=== PATIENT | male | born 1955 | race Two or more races ===

== ENCOUNTER 2023-04-27 09:53 | Inpatient (IN) | payer OTHER ==
[~2023-04-27] VITALS: Ht 165.1 cm; Wt 90.3 kg
[2023-04-27] VITALS (25 sets, daily range): BP systolic 78–175; BP diastolic 40–91; TEMP 97.5–98; O2SAT 92–100
[2023-04-27 10:28] LABS: CALCIUM, SERUM 7.7 mg/dL (8.5-10.1); CARBON DIOXIDE 26 mmol/L (21-32); CHLORIDE 95 mmol/L (98-107); CREATININE 5.5 mg/dL (0.6-1.3); GLUCOSE 188 mg/dL (74-106); POTASSIUM 5.1 mmol/L (3.5-5.1); SODIUM SERUM 134 mmol/L (136-145); UREA NITROGEN, BLOOD 65 mg/dL (7-18)
[2023-04-27 10:30] LABS: INR 1.11 (0.91-1.10); PARTIAL THROMBOPLASTIN TIME 28.8 SEC (24.3-34.3); PROTHROMBIN TIME 11.6 SECS (9.2-11.1)
[2023-04-27 10:33] LABS: ALANINE AMINOTRANSFERASE 171 U/L (12-78); ALBUMIN 2.7 g/dL (3.4-5.0); ALKALINE PHOSPHATASE 170 U/L (46-116); ASPARTATE AMINOTRANSFERASE 175 U/L (15-37); BILIRUBIN,DIRECT 0.5 mg/dL (0.0-0.2); BILIRUBIN,TOTAL 0.8 mg/dL (0.2-1.0); TOTAL PROTEIN, SERUM 6.4 g/dL (6.4-8.2)
[2023-04-27 10:38] LABS: LACTIC ACID 1.1 mmol/L (0.4-2.0)
[2023-04-27] MEDS ORDERED: ASPIRIN 325 MG TABLET ONE (10:38)
[2023-04-27 10:43] LABS: HEMOGLOBIN 8.6 g/dL (13.5-17.5)
[2023-04-27 10:47] LABS: HEMATOCRIT 26 % (39-51)
[2023-04-27 10:49] LABS: BASOPHILS % (AUTO) 0.2 % (0.0-2.0); EOSINOPHILS % (AUTO) 0.1 % (0.0-6.0); LYMPHOCYTES # (AUTO) 0.3 K/uL (0.8-4.8); LYMPHOCYTES % (AUTO) 2.3 % (20.0-44.0); MEAN CORPUSCULAR HEMOGLOBIN 30 PG (26.0-33.0); MEAN CORPUSCULAR HGB CONC 33 g/dl (31.0-36.0); MEAN CORPUSCULAR VOLUME 90 fL (80-96); MONOCYTES # (AUTO) 0.7 K/uL (0.1-1.30); MONOCYTES % (AUTO) 5.4 % (2.0-12.0); NEUTROPHILS # (AUTO) 12.4 K/uL (1.8-8.9); PLATELET COUNT (AUTO) 169 K/uL (150-450); RED BLOOD CELL COUNT(AUTO) 2.87 MIL/uL (4.5-6.0); RED CELL DISTRIBUTION WIDTH 20.1 % (11.5-15.0); WHITE BLOOD COUNT (AUTO) 13.4 K/uL (4.3-11.0)
[2023-04-27] MEDS ORDERED: AZITHROMYCIN 500 MG in IV D5W 250 ML IV ONE (11:00)
[2023-04-27] MEDS ORDERED: CEFTRIAXONE 1GM BAG (ER ONLY) 1 GM/50 ML PIGGYBACK IV ONE (11:00)
[2023-04-27] MEDS ORDERED: ASPIRIN 325 MG TABLET PO ONE (11:00)
[2023-04-27] MEDS ORDERED: CEFTRIAXONE 1GM BAG (ER ONLY) 50 ML IV ONE (11:03)
[2023-04-27] MEDS ORDERED: NORM210S MC (11:29)
[2023-04-27] MEDS ORDERED: POLY17PO4 PO (11:29)
[2023-04-27] MEDS ORDERED: ALLA266C2 TP (11:29)
[2023-04-27] MEDS ORDERED: METO50TA16 PO (11:29)
[2023-04-27] MEDS ORDERED: SENN-261 PO (11:29)
[2023-04-27] MEDS ORDERED: FERR325T23 PO (11:29)
[2023-04-27] MEDS ORDERED: ATOR80TA PO (11:29)
[2023-04-27] MEDS ORDERED: PANT40TA2 PO (11:29)
[2023-04-27] MEDS ORDERED: TAMS-12 PO (11:29)
[2023-04-27] MEDS ORDERED: CILO100T PO (11:29)
[2023-04-27] MEDS ORDERED: EPOE40002 SQ (11:29)
[2023-04-27] MEDS ORDERED: ASPI-1169 PO (11:29)
[2023-04-27] MEDS ORDERED: INSU100V SQ (11:29)
[2023-04-27] MEDS ORDERED: GABA-536 PO (11:29)
[2023-04-27] MEDS ORDERED: ACET-868 PO (11:29)
[2023-04-27] MEDS ORDERED: HONE15GE TP (11:29)
[2023-04-27] MEDS ORDERED: INSU100V7 SQ (11:29)
[2023-04-27] MEDS ORDERED: AMIO200T5 PO (11:29)
[2023-04-27] MEDS ORDERED: FINA5TAB11 PO (11:29)
[2023-04-27] MEDS ORDERED: QUET25TA PO (11:29)
[2023-04-27] MEDS ORDERED: MELA1TAB47 PO (11:29)
[2023-04-27] MEDS ORDERED: EPOETIN ALFA (10,000 UNIT) 10,000 UNIT/ML VIAL IV ONE (12:00)
[2023-04-27 12:08] LABS: ABG BASE EXCESS -1.7 mmol/L; ABG OXYGEN SATURATION 89.2 % (92.0-98.5); ABG PCO2 35.5 mmHg (35.0-45.0); ABG PH 7.419 (7.350-7.450); ABG PO2 56.7 mmHg (75.0-100.0); ABG TOTAL HEMOGLOBIN 9.1 G/dL (13.5-18.0); COHb 0.6 % (0.5-1.5); MetHb 0.1 % (0.0-1.5); O2Hb 88.6 % (94.0-97.0); SITE, ABG Right Radial; VENT MODE, BG BIPAP 15/5 R16 100%
[2023-04-27 12:16] LABS: IRON, SERUM 26 ug/dl (50-175); TOTAL IRON BINDING CAPACITY 226 ug/dl (250-450)
[2023-04-27] MEDS ORDERED: INSULIN REGULAR, HUMAN 100 UNIT/ML 3 ML VIAL SQ PRN (12:30)
[2023-04-27] MEDS ORDERED: ACETAMINOPHEN 325 MG TABLET PO PRN (12:30)
[2023-04-27] MEDS ORDERED: DEXTROSE 50%-WATER 50 ML DISP.SYRIN IV PRN (12:30)
[2023-04-27] MEDS ORDERED: POLYETHYLENE GLYCOL 3350 17 GM POWD.PACK PO PRN (12:30)
[2023-04-27] MEDS ORDERED: SENNOSIDES 8.6 MG TABLET PO PRN (12:30)
[2023-04-27] MEDS ORDERED: IPRATROPIUM NEB FS 0.5 MG/2.5 ML AMPUL.NEB NEB PRN (12:30)
[2023-04-27] MEDS ORDERED: ALBUTEROL FS 2.5 MG/0.5 ML VIAL.NEB NEB PRN (12:30)
[2023-04-27 12:31] LABS: FERRITIN 518 ng/mL (8-388)
[2023-04-27] MEDS ORDERED: EPOETIN ALFA-EPBX 10,000 UNIT/ML VIAL IV ONE (13:00)
[2023-04-27] MEDS: GABAPENTIN 400 MG CAPSULE PO SCH ×2 (13:00→16:08)
[2023-04-27] MEDS: ALBUMIN 25% 25 GM in PREMIX 1 EA IV PRN (13:37)
[2023-04-27] MEDS: PIPERACILLIN /TAZOBACTAM 2.25 G in IV D5W 50 ML IV SCH ×2 (13:39→20:47)
[2023-04-27] MEDS: NOREPINEPHRINE 8 MG in IV NS 0.9% 242 ML IV PRN (14:14)
[2023-04-27] MEDS: CILOSTAZOL 100 MG TABLET PO SCH (16:07)
[2023-04-27] MEDS: FERROUS SULFATE (325 MG) 325 MG/TAB TABLET PO SCH (16:08)
[2023-04-27] MEDS: AMIODARONE HCL 200 MG TABLET PO SCH (16:08)
[2023-04-27] MEDS: QUETIAPINE FUMARATE 25 MG TABLET PO SCH (16:08)
[2023-04-27] MEDS: BLOOD SUGAR DIAGNOSTIC 1 EACH STRIP VI SCH ×2 (17:07→21:22)
[2023-04-27] MEDS ORDERED: BLOOD SUGAR DIAGNOSTIC 1 EACH STRIP IN SCH (17:30)
[2023-04-28] VITALS (61 sets, daily range): BP systolic 90–174; BP diastolic 47–93; TEMP 97.3–98.7; O2SAT 90–100
[2023-04-28] MEDS: NOREPINEPHRINE 8 MG in IV NS 0.9% 242 ML IV PRN ×2 (02:17→12:17)
[2023-04-28 04:55] LABS: BASOPHILS # (AUTO) 0.1 K/uL (0.0-0.2); BASOPHILS % (AUTO) 0.4 % (0.0-2.0); EOSINOPHILS # (AUTO) 0.1 K/uL (0.0-0.7); EOSINOPHILS % (AUTO) 1.2 % (0.0-6.0); HEMATOCRIT 29 % (39-51); HEMOGLOBIN 9.2 g/dL (13.5-17.5); LYMPHOCYTES # (AUTO) 0.6 K/uL (0.8-4.8); LYMPHOCYTES % (AUTO) 4.7 % (20.0-44.0); MEAN CORPUSCULAR HEMOGLOBIN 30 PG (26.0-33.0); MEAN CORPUSCULAR HGB CONC 32 g/dl (31.0-36.0); MEAN CORPUSCULAR VOLUME 94 fL (80-96); MONOCYTES # (AUTO) 1.2 K/uL (0.1-1.30); MONOCYTES % (AUTO) 9.7 % (2.0-12.0); NEUTROPHILS # (AUTO) 10.1 K/uL (1.8-8.9); PLATELET COUNT (AUTO) 194 K/uL (150-450); RED BLOOD CELL COUNT(AUTO) 3.11 MIL/uL (4.5-6.0); RED CELL DISTRIBUTION WIDTH 21.2 % (11.5-15.0)
[2023-04-28 05:15] LABS: CALCIUM, SERUM 8.6 mg/dL (8.5-10.1); CREATININE 4.6 mg/dL (0.6-1.3); MAGNESIUM 2.2 mg/dL (1.8-2.4); POTASSIUM 4.4 mmol/L (3.5-5.1)
[2023-04-28] MEDS: PIPERACILLIN /TAZOBACTAM 2.25 G in IV D5W 50 ML IV SCH ×3 (06:19→21:45)
[2023-04-28] MEDS ORDERED: PANTOPRAZOLE 40 MG TABLET.DR PO SCH (07:30)
[2023-04-28] MEDS ORDERED: Z GUARD REMEDY 4 OZ OINT TP PRN (08:00)
[2023-04-28] MEDS: ASPIRIN 81 MG TAB.CHEW PO SCH (08:15)
[2023-04-28] MEDS: QUETIAPINE FUMARATE 25 MG TABLET PO SCH ×2 (08:15→16:49)
[2023-04-28] MEDS: GABAPENTIN 400 MG CAPSULE PO SCH ×3 (08:15→16:49)
[2023-04-28] MEDS: TAMSULOSIN 0.4 MG CAP.SR.24H PO SCH (08:15)
[2023-04-28] MEDS: FINASTERIDE (5 MG) 5 MG TABLET PO SCH (08:15)
[2023-04-28] MEDS: AMIODARONE HCL 200 MG TABLET PO SCH ×2 (08:16→16:50)
[2023-04-28] MEDS: FERROUS SULFATE (325 MG) 325 MG/TAB TABLET PO SCH (08:16)
[2023-04-28] MEDS: BLOOD SUGAR DIAGNOSTIC 1 EACH STRIP VI SCH ×4 (08:16→22:26)
[2023-04-28 08:33] LABS: OCCULT BLOOD STOOL NEGATIVE (NEGATIVE)
[2023-04-28] MEDS: HEPARIN SODIUM, PORCINE 5000 UNITS/1 ML VIAL SQ SCH ×2 (09:20→21:30)
[2023-04-28] MEDS: NEOMY SULF/BACITRAC ZN/POLY 15 GM TUBE TP SCH (09:21)
[2023-04-28] MEDS: CILOSTAZOL 100 MG TABLET PO SCH ×2 (09:21→16:51)
[2023-04-28] MEDS: Z GUARD REMEDY 4 OZ OINT TP SCH (09:21)
[2023-04-28] MEDS: SOD FERRIC GLUC 125 MG in IV NS 0.9% 100 ML IV SCH (15:05)
[2023-04-28] MEDS: *INSULIN REGULAR(HUMULIN R)HUM 100 UNIT/ML VIAL SQ PRN (22:27)
[2023-04-29] VITALS (22 sets, daily range): BP systolic 78–130; BP diastolic 29–70; TEMP 92.8–98.2; O2SAT 88–100
[2023-04-29 03:12] LABS: HEPATITIS B SURFACE AB Non Reactive (.)
[2023-04-29 03:44] LABS: BASOPHILS % (AUTO) 0.4 % (0.0-2.0); EOSINOPHILS # (AUTO) 0.1 K/uL (0.0-0.7); EOSINOPHILS % (AUTO) 1.1 % (0.0-6.0); HEMATOCRIT 24 % (39-51); HEMOGLOBIN 7.7 g/dL (13.5-17.5); LYMPHOCYTES # (AUTO) 0.4 K/uL (0.8-4.8); LYMPHOCYTES % (AUTO) 4.7 % (20.0-44.0); MEAN CORPUSCULAR HEMOGLOBIN 30 PG (26.0-33.0); MEAN CORPUSCULAR HGB CONC 32 g/dl (31.0-36.0); MEAN CORPUSCULAR VOLUME 93 fL (80-96); MONOCYTES # (AUTO) 0.8 K/uL (0.1-1.30); MONOCYTES % (AUTO) 10.5 % (2.0-12.0); NEUTROPHILS # (AUTO) 6.3 K/uL (1.8-8.9); NEUTROPHILS % (AUTO) 83.3 % (43.0-81.0); PLATELET COUNT (AUTO) 158 K/uL (150-450); RED BLOOD CELL COUNT(AUTO) 2.58 MIL/uL (4.5-6.0); RED CELL DISTRIBUTION WIDTH 20.4 % (11.5-15.0); WHITE BLOOD COUNT (AUTO) 7.5 K/uL (4.3-11.0)
[2023-04-29 04:04] LABS: CALCIUM, SERUM 8.5 mg/dL (8.5-10.1); CREATININE 3.8 mg/dL (0.6-1.3); POTASSIUM 4.3 mmol/L (3.5-5.1)
[2023-04-29] MEDS: PIPERACILLIN /TAZOBACTAM 2.25 G in IV D5W 50 ML IV SCH ×3 (05:27→21:27)
[2023-04-29] MEDS: BLOOD SUGAR DIAGNOSTIC 1 EACH STRIP VI SCH ×4 (07:50→22:46)
[2023-04-29] MEDS: GABAPENTIN 400 MG CAPSULE PO SCH ×3 (08:10→17:48)
[2023-04-29] MEDS: ASPIRIN 81 MG TAB.CHEW PO SCH (08:10)
[2023-04-29] MEDS: CILOSTAZOL 100 MG TABLET PO SCH ×2 (08:10→17:51)
[2023-04-29] MEDS: TAMSULOSIN 0.4 MG CAP.SR.24H PO SCH (08:10)
[2023-04-29] MEDS: QUETIAPINE FUMARATE 25 MG TABLET PO SCH ×2 (08:10→17:48)
[2023-04-29] MEDS: FINASTERIDE (5 MG) 5 MG TABLET PO SCH (08:10)
[2023-04-29] MEDS: PANTOPRAZOLE 40 MG/PACK PACK PO SCH (08:12)
[2023-04-29 08:15] LABS: OCCULT BLOOD STOOL NEGATIVE (NEGATIVE)
[2023-04-29] MEDS: HEPARIN SODIUM, PORCINE 5000 UNITS/1 ML VIAL SQ SCH ×2 (08:15→21:26)
[2023-04-29] MEDS: Z GUARD REMEDY 4 OZ OINT TP SCH (08:29)
[2023-04-29] MEDS: NEOMY SULF/BACITRAC ZN/POLY 15 GM TUBE TP SCH ×2 (08:29→09:00)
[2023-04-29] MEDS: AMIODARONE HCL 200 MG TABLET PO SCH ×2 (08:35→17:48)
[2023-04-29] MEDS: PROSOURCE / PROSTAT (PYXIS) 30 ML UDC PO SCH ×3 (09:00→17:48)
[2023-04-29] MEDS: *INSULIN REGULAR(HUMULIN R)HUM 100 UNIT/ML VIAL SQ PRN ×2 (11:59→22:48)
[2023-04-29] MEDS ORDERED: NOREPINEPHRINE 32 MG in IV NS 0.9% 218 ML IV PRN (13:30)
[2023-04-29] MEDS ORDERED: CALCIUM CHLORIDE 1,000 MG/10 ML DISP.SYRIN IV ONE (13:37)
[2023-04-29] MEDS ORDERED: SODIUM BICARBONATE SYR 50 MEQ/50 ML DISP.SYRIN IV ONE (13:38)
[2023-04-29] MEDS ORDERED: EPINEPHRINE (1:10,000) SYRINGE 1 MG/10 ML DISP.SYRIN IVP ONE (13:38)
[2023-04-29 14:12] LABS: BASOPHILS % (AUTO) 0.3 % (0.0-2.0); EOSINOPHILS # (AUTO) 0.1 K/uL (0.0-0.7); EOSINOPHILS % (AUTO) 1.1 % (0.0-6.0); HEMATOCRIT 24 % (39-51); HEMOGLOBIN 7.7 g/dL (13.5-17.5); LYMPHOCYTES # (AUTO) 0.2 K/uL (0.8-4.8); MEAN CORPUSCULAR HEMOGLOBIN 31 PG (26.0-33.0); MEAN CORPUSCULAR HGB CONC 32 g/dl (31.0-36.0); MEAN CORPUSCULAR VOLUME 95 fL (80-96); MONOCYTES # (AUTO) 0.5 K/uL (0.1-1.30); MONOCYTES % (AUTO) 6.8 % (2.0-12.0); NEUTROPHILS # (AUTO) 6.2 K/uL (1.8-8.9); NEUTROPHILS % (AUTO) 88.8 % (43.0-81.0); PLATELET COUNT (AUTO) 138 K/uL (150-450); RED BLOOD CELL COUNT(AUTO) 2.51 MIL/uL (4.5-6.0); RED CELL DISTRIBUTION WIDTH 21.2 % (11.5-15.0)
[2023-04-29 14:24] LABS: CALCIUM, SERUM 8.7 mg/dL (8.5-10.1); CARBON DIOXIDE 23 mmol/L (21-32); CHLORIDE 101 mmol/L (98-107); CREATININE 4.2 mg/dL (0.6-1.3); GLUCOSE 194 mg/dL (74-106); POTASSIUM 3.8 mmol/L (3.5-5.1); SODIUM SERUM 138 mmol/L (136-145); UREA NITROGEN, BLOOD 41 mg/dL (7-18)
[2023-04-29 14:25] LABS: INR 1.25 (0.91-1.10)
[2023-04-29] MEDS: IV NS 0.9% 1,000 ML IV PRN (14:27)
[2023-04-29] MEDS: SOD FERRIC GLUC 125 MG in IV NS 0.9% 100 ML IV SCH (14:36)
[2023-04-29 14:37] LABS: ALANINE AMINOTRANSFERASE 143 U/L (12-78); ALBUMIN 2.2 g/dL (3.4-5.0); ALKALINE PHOSPHATASE 126 U/L (46-116); ASPARTATE AMINOTRANSFERASE 149 U/L (15-37); BILIRUBIN,TOTAL 0.7 mg/dL (0.2-1.0); PHOSPHORUS 5.1 mg/dL (2.5-4.9); TOTAL PROTEIN, SERUM 5.3 g/dL (6.4-8.2)
[2023-04-29] MEDS: NOREPINEPHRINE 8 MG in IV NS 0.9% 242 ML IV PRN (14:38)
[2023-04-29 14:51] LABS: LACTIC ACID 2.6 mmol/L (0.4-2.0)
[2023-04-29 14:52] LABS: CREATINE KINASE, TOTAL 1135 U/L (39-308)
[2023-04-29] MEDS ORDERED: VANCOMYCIN 1 GM in IV D5W 250ml IV ONE (15:00)
[2023-04-29] MEDS ORDERED: PROPOFOL 100 ML IV PRN (15:00)
[2023-04-29 15:19] LABS: ANISOCYTOSIS 1+; LYMPHOCYTES % (MANUAL) 3 % (16-48); MONOCYTES % (MANUAL) 8 % (0-11.0); MYELOCYTES % 1 % (0-0); NEUTROPHILS % (MANUAL) 88 (42-76); PLATELET ESTIMATE DECREASED
[2023-04-29 15:36] LABS: ABG BASE EXCESS -15.3 mmol/L; ABG OXYGEN SATURATION 62.9 % (92.0-98.5); ABG PCO2 23.7 mmHg (35.0-45.0); ABG PH 7.262 (7.350-7.450); ABG PO2 35.9 mmHg (75.0-100.0); ABG TOTAL HEMOGLOBIN 3.5 G/dL (13.5-18.0); AaDO2 653.4 mmHg; MetHb 0.3 % (0.0-1.5); O2Hb 62.7 % (94.0-97.0); PEEP,BG 5 cm H2O; SITE, ABG Right Radial; VENT MODE, BG AC20 VT500 100% +5; VT, ABG 500 mL
[2023-04-29 15:38] LABS: BILIRUBIN,DIRECT 0.4 mg/dL (0.0-0.2)
[2023-04-29 16:05] LABS: LACTIC ACID REFLEX 2.9 mmol/L (0.4-1.9)
[2023-04-29 17:25] LABS: BASOPHILS % (AUTO) 0.2 % (0.0-2.0); EOSINOPHILS % (AUTO) 0.2 % (0.0-6.0); HEMATOCRIT 27 % (39-51); HEMOGLOBIN 8.5 g/dL (13.5-17.5); LYMPHOCYTES # (AUTO) 0.2 K/uL (0.8-4.8); LYMPHOCYTES % (AUTO) 2.4 % (20.0-44.0); MEAN CORPUSCULAR HEMOGLOBIN 30 PG (26.0-33.0); MEAN CORPUSCULAR HGB CONC 31 g/dl (31.0-36.0); MEAN CORPUSCULAR VOLUME 96 fL (80-96); MONOCYTES # (AUTO) 0.9 K/uL (0.1-1.30); MONOCYTES % (AUTO) 9.1 % (2.0-12.0); NEUTROPHILS # (AUTO) 8.7 K/uL (1.8-8.9); NEUTROPHILS % (AUTO) 88.1 % (43.0-81.0); PLATELET COUNT (AUTO) 174 K/uL (150-450); RED BLOOD CELL COUNT(AUTO) 2.84 MIL/uL (4.5-6.0); RED CELL DISTRIBUTION WIDTH 21.2 % (11.5-15.0); WHITE BLOOD COUNT (AUTO) 9.9 K/uL (4.3-11.0)
[2023-04-29 17:38] LABS: CALCIUM, SERUM 8.6 mg/dL (8.5-10.1); CREATININE 4.3 mg/dL (0.6-1.3); POTASSIUM 4.4 mmol/L (3.5-5.1)
[2023-04-29 17:44] LABS: ALBUMIN 2.5 g/dL (3.4-5.0); BILIRUBIN,TOTAL 0.7 mg/dL (0.2-1.0); MAGNESIUM 2.1 mg/dL (1.8-2.4); TOTAL PROTEIN, SERUM 5.9 g/dL (6.4-8.2)
[2023-04-29] MEDS: PROPOFOL 100 ML IV PRN ×2 (18:51→20:58)
[2023-04-29 20:32] LABS: CALCIUM, SERUM 8.5 mg/dL (8.5-10.1); CREATININE 4.4 mg/dL (0.6-1.3); MAGNESIUM 2.1 mg/dL (1.8-2.4); POTASSIUM 4.3 mmol/L (3.5-5.1)
[2023-04-29 22:40] LABS: ABG BASE EXCESS -2.8 mmol/L; ABG OXYGEN SATURATION 75.8 % (92.0-98.5); ABG PCO2 40.2 mmHg (35.0-45.0); ABG PH 7.363 (7.350-7.450); ABG PO2 43.6 mmHg (75.0-100.0); ABG TOTAL HEMOGLOBIN 8.9 G/dL (13.5-18.0); COHb 0.4 % (0.5-1.5); MetHb 0.4 % (0.0-1.5); O2Hb 75.2 % (94.0-97.0); SITE, ABG Other; VENT MODE, BG AC 20 500 100% +5
[2023-04-29 23:02] LABS: CREATINE KINASE, TOTAL 919 U/L (39-308)
[2023-04-30] VITALS (73 sets, daily range): BP systolic 80–136; BP diastolic 39–86; TEMP 92.3–97.7; O2SAT 92–100
[2023-04-30 01:03] LABS: CREATINE KINASE, TOTAL 757 U/L (39-308)
[2023-04-30] MEDS: PROPOFOL 100 ML IV PRN ×7 (01:11→22:13)
[2023-04-30 04:15] LABS: BASOPHILS % (AUTO) 0.4 % (0.0-2.0); EOSINOPHILS % (AUTO) 0.4 % (0.0-6.0); HEMATOCRIT 23 % (39-51); HEMOGLOBIN 7.7 g/dL (13.5-17.5); LYMPHOCYTES # (AUTO) 0.3 K/uL (0.8-4.8); LYMPHOCYTES % (AUTO) 4.3 % (20.0-44.0); MEAN CORPUSCULAR HEMOGLOBIN 31 PG (26.0-33.0); MEAN CORPUSCULAR HGB CONC 33 g/dl (31.0-36.0); MEAN CORPUSCULAR VOLUME 93 fL (80-96); MONOCYTES # (AUTO) 0.6 K/uL (0.1-1.30); MONOCYTES % (AUTO) 7.6 % (2.0-12.0); NEUTROPHILS # (AUTO) 6.9 K/uL (1.8-8.9); NEUTROPHILS % (AUTO) 87.3 % (43.0-81.0); PLATELET COUNT (AUTO) 145 K/uL (150-450); RED CELL DISTRIBUTION WIDTH 20.5 % (11.5-15.0); WHITE BLOOD COUNT (AUTO) 7.9 K/uL (4.3-11.0)
[2023-04-30 04:51] LABS: INR 1.19 (0.91-1.10); PARTIAL THROMBOPLASTIN TIME 36.8 SEC (24.3-34.3); PROTHROMBIN TIME 12.4 SECS (9.2-11.1)
[2023-04-30 04:53] LABS: LACTIC ACID 1.9 mmol/L (0.4-2.0)
[2023-04-30] MEDS: PIPERACILLIN /TAZOBACTAM 2.25 G in IV D5W 50 ML IV SCH ×3 (04:54→21:43)
[2023-04-30 05:29] LABS: ABG BASE EXCESS -1.7 mmol/L; ABG OXYGEN SATURATION 99.2 % (92.0-98.5); ABG PCO2 34.9 mmHg (35.0-45.0); ABG PH 7.424 (7.350-7.450); ABG PO2 227.6 mmHg (75.0-100.0); ABG TOTAL HEMOGLOBIN 9.1 G/dL (13.5-18.0); AaDO2 450.5 mmHg; COHb 0.4 % (0.5-1.5); MetHb 0.2 % (0.0-1.5); O2Hb 98.6 % (94.0-97.0); SITE, ABG Right Brachial; VENT MODE, BG AC 20 500 100% +5
[2023-04-30 05:54] LABS: ALBUMIN 2.2 g/dL (3.4-5.0); BILIRUBIN,TOTAL 0.7 mg/dL (0.2-1.0); CALCIUM, SERUM 8.1 mg/dL (8.5-10.1); CREATININE 4.5 mg/dL (0.6-1.3); MAGNESIUM 2.1 mg/dL (1.8-2.4); PHOSPHORUS 4.9 mg/dL (2.5-4.9); TOTAL PROTEIN, SERUM 5.2 g/dL (6.4-8.2)
[2023-04-30] MEDS: BLOOD SUGAR DIAGNOSTIC 1 EACH STRIP VI SCH (08:15)
[2023-04-30] MEDS: *INSULIN REGULAR(HUMULIN R)HUM 100 UNIT/ML VIAL SQ PRN ×4 (08:21→18:20)
[2023-04-30] MEDS: HEPARIN SODIUM, PORCINE 5000 UNITS/1 ML VIAL SQ SCH ×2 (09:00→21:50)
[2023-04-30] MEDS: TAMSULOSIN 0.4 MG CAP.SR.24H PO SCH (09:05)
[2023-04-30] MEDS: ASPIRIN 81 MG TAB.CHEW PO SCH (09:05)
[2023-04-30] MEDS: GABAPENTIN 400 MG CAPSULE PO SCH ×3 (09:06→17:58)
[2023-04-30] MEDS: FINASTERIDE (5 MG) 5 MG TABLET PO SCH (09:06)
[2023-04-30] MEDS: QUETIAPINE FUMARATE 25 MG TABLET PO SCH ×2 (09:06→17:58)
[2023-04-30] MEDS: NEOMY SULF/BACITRAC ZN/POLY 15 GM TUBE TP SCH ×2 (09:07→09:08)
[2023-04-30] MEDS: Z GUARD REMEDY 4 OZ OINT TP SCH (09:08)
[2023-04-30] MEDS: HYDROCORTISONE SOD SUCCINATE 100 MG/2 ML VIAL IV SCH ×3 (09:12→21:43)
[2023-04-30] MEDS: PANTOPRAZOLE 40 MG/PACK PACK PO SCH (09:12)
[2023-04-30] MEDS: AMIODARONE HCL 200 MG TABLET PO SCH ×2 (09:13→17:00)
[2023-04-30] MEDS: CILOSTAZOL 100 MG TABLET PO SCH ×2 (09:13→18:00)
[2023-04-30] MEDS: PROSOURCE / PROSTAT (PYXIS) 30 ML UDC PO SCH ×3 (09:15→17:59)
[2023-04-30 11:07] LABS: CALCIUM, IONIZED 4.8 mg/dL (4.5-5.6)
[2023-04-30] MEDS: IV NS 0.9% 1,000 ML IV PRN (11:53)
[2023-04-30] MEDS ORDERED: BLOOD SUGAR DIAGNOSTIC 1 EACH STRIP VI SCH ×2 (12:00→19:00)
[2023-04-30] MEDS: SOD FERRIC GLUC 125 MG in IV NS 0.9% 100 ML IV SCH (16:00)
[2023-04-30] MEDS ORDERED: NEPRO 1,000 ML BOTTLE GT PRN (16:30)
[2023-04-30] MEDS: VANCOMYCIN POST DIALYSIS 500MG IV PRN ×4 (16:46→16:48)
[2023-04-30] MEDS: NOREPINEPHRINE 8 MG in IV NS 0.9% 242 ML IV PRN (19:10)
[2023-04-30 19:50] LABS: CALCIUM, SERUM 8.3 mg/dL (8.5-10.1); CREATININE 3.5 mg/dL (0.6-1.3); POTASSIUM 4.2 mmol/L (3.5-5.1)
[2023-04-30 20:06] LABS: LACTIC ACID 1.4 mmol/L (0.4-2.0)
[2023-04-30 22:27] LABS: CREATINE KINASE, TOTAL 295 U/L (39-308)
[2023-05-01] VITALS (46 sets, daily range): BP systolic 89–125; BP diastolic 52–82; TEMP 97.8–98.8; O2SAT 90–100
[2023-05-01] MEDS: BLOOD SUGAR DIAGNOSTIC 1 EACH STRIP IN SCH ×4 (00:06→17:40)
[2023-05-01] MEDS: INSULIN REGULAR, HUMAN 100 UNIT/ML 3 ML VIAL SQ PRN ×4 (00:08→18:26)
[2023-05-01] MEDS: PROPOFOL 100 ML IV PRN ×2 (01:52→06:36)
[2023-05-01] MEDS: HYDROCORTISONE SOD SUCCINATE 100 MG/2 ML VIAL IV SCH ×3 (05:27→20:48)
[2023-05-01] MEDS: PIPERACILLIN /TAZOBACTAM 2.25 G in IV D5W 50 ML IV SCH ×3 (05:27→21:00)
[2023-05-01 08:32] LABS: BASOPHILS # (AUTO) 0.1 K/uL (0.0-0.2); BASOPHILS % (AUTO) 0.3 % (0.0-2.0); HEMATOCRIT 36 % (39-51); HEMOGLOBIN 10.8 g/dL (13.5-17.5); LYMPHOCYTES # (AUTO) 0.5 K/uL (0.8-4.8); LYMPHOCYTES % (AUTO) 2.5 % (20.0-44.0); MEAN CORPUSCULAR HEMOGLOBIN 29 PG (26.0-33.0); MEAN CORPUSCULAR HGB CONC 30 g/dl (31.0-36.0); MEAN CORPUSCULAR VOLUME 95 fL (80-96); MONOCYTES # (AUTO) 1.3 K/uL (0.1-1.30); MONOCYTES % (AUTO) 6.8 % (2.0-12.0); NEUTROPHILS # (AUTO) 16.8 K/uL (1.8-8.9); NEUTROPHILS % (AUTO) 90.4 % (43.0-81.0); PLATELET COUNT (AUTO) 232 K/uL (150-450); RED BLOOD CELL COUNT(AUTO) 3.73 MIL/uL (4.5-6.0); RED CELL DISTRIBUTION WIDTH 21.9 % (11.5-15.0); WHITE BLOOD COUNT (AUTO) 18.6 K/uL (4.3-11.0)
[2023-05-01 08:41] LABS: CALCIUM, SERUM 8.3 mg/dL (8.5-10.1); POTASSIUM 4.4 mmol/L (3.5-5.1)
[2023-05-01 09:09] LABS: ABG BASE EXCESS -1.5 mmol/L; ABG OXYGEN SATURATION 95.2 % (92.0-98.5); ABG PCO2 33.4 mmHg (35.0-45.0); ABG PH 7.438 (7.350-7.450); ABG PO2 78.6 mmHg (75.0-100.0); ABG TOTAL HEMOGLOBIN 11.6 G/dL (13.5-18.0); AaDO2 204.3 mmHg; COHb 0.5 % (0.5-1.5); MetHb 0.4 % (0.0-1.5); O2Hb 94.3 % (94.0-97.0); SITE, ABG Right Radial; VENT MODE, BG AC 20-500-45 +5
[2023-05-01] MEDS: PANTOPRAZOLE 40 MG/PACK PACK PO SCH (09:31)
[2023-05-01] MEDS: TAMSULOSIN 0.4 MG CAP.SR.24H PO SCH (09:32)
[2023-05-01] MEDS: QUETIAPINE FUMARATE 25 MG TABLET PO SCH ×2 (09:32→17:40)
[2023-05-01] MEDS: ASPIRIN 81 MG TAB.CHEW PO SCH (09:32)
[2023-05-01] MEDS: CILOSTAZOL 100 MG TABLET PO SCH ×2 (09:32→17:40)
[2023-05-01] MEDS: FINASTERIDE (5 MG) 5 MG TABLET PO SCH (09:32)
[2023-05-01] MEDS: GABAPENTIN 400 MG CAPSULE PO SCH ×3 (09:32→17:39)
[2023-05-01] MEDS: AMIODARONE HCL 200 MG TABLET PO SCH ×2 (09:33→17:39)
[2023-05-01] MEDS: Z GUARD REMEDY 4 OZ OINT TP SCH (09:37)
[2023-05-01] MEDS: NEOMY SULF/BACITRAC ZN/POLY 15 GM TUBE TP SCH ×2 (09:37)
[2023-05-01] MEDS: PROSOURCE / PROSTAT (PYXIS) 30 ML UDC PO SCH ×3 (09:39→17:38)
[2023-05-01] MEDS: HEPARIN SODIUM, PORCINE 5000 UNITS/1 ML VIAL SQ SCH ×2 (09:41→20:55)
[2023-05-01] MEDS: IV NS 0.9% 1,000 ML IV PRN (10:47)
[2023-05-01] MEDS: SOD FERRIC GLUC 125 MG in IV NS 0.9% 100 ML IV SCH (17:38)
[2023-05-01] MEDS: NEPRO 1,000 ML BOTTLE GT PRN (17:40)
[2023-05-02] VITALS (30 sets, daily range): BP systolic 87–129; BP diastolic 55–80; TEMP 96.4–98.8; O2SAT 94–100
[2023-05-02] MEDS: NOREPINEPHRINE 8 MG in IV NS 0.9% 242 ML IV PRN ×2
[2023-05-02] MEDS: BLOOD SUGAR DIAGNOSTIC 1 EACH STRIP IN SCH ×4 (00:41→18:06)
[2023-05-02] MEDS: GABAPENTIN 400 MG CAPSULE PO SCH ×3 (00:41→16:09)
[2023-05-02] MEDS: INSULIN REGULAR, HUMAN 100 UNIT/ML 3 ML VIAL SQ PRN ×4 (00:47→18:08)
[2023-05-02] MEDS: PIPERACILLIN /TAZOBACTAM 2.25 G in IV D5W 50 ML IV SCH ×3 (04:00→21:12)
[2023-05-02] MEDS: HYDROCORTISONE SOD SUCCINATE 100 MG/2 ML VIAL IV SCH ×3 (05:01→21:12)
[2023-05-02 05:10] LABS: BASOPHILS % (AUTO) 0.1 % (0.0-2.0); EOSINOPHILS % (AUTO) 0.1 % (0.0-6.0); HEMATOCRIT 31 % (39-51); HEMOGLOBIN 9.6 g/dL (13.5-17.5); LYMPHOCYTES # (AUTO) 0.4 K/uL (0.8-4.8); LYMPHOCYTES % (AUTO) 3.7 % (20.0-44.0); MEAN CORPUSCULAR HEMOGLOBIN 29 PG (26.0-33.0); MEAN CORPUSCULAR HGB CONC 31 g/dl (31.0-36.0); MEAN CORPUSCULAR VOLUME 93 fL (80-96); MONOCYTES # (AUTO) 0.6 K/uL (0.1-1.30); MONOCYTES % (AUTO) 5.2 % (2.0-12.0); NEUTROPHILS # (AUTO) 10.6 K/uL (1.8-8.9); NEUTROPHILS % (AUTO) 90.9 % (43.0-81.0); PLATELET COUNT (AUTO) 205 K/uL (150-450); RED BLOOD CELL COUNT(AUTO) 3.28 MIL/uL (4.5-6.0); WHITE BLOOD COUNT (AUTO) 11.7 K/uL (4.3-11.0)
[2023-05-02 05:26] LABS: CALCIUM, SERUM 8.2 mg/dL (8.5-10.1); CREATININE 4.7 mg/dL (0.6-1.3); POTASSIUM 4.5 mmol/L (3.5-5.1)
[2023-05-02] MEDS: PROSOURCE / PROSTAT (PYXIS) 30 ML UDC PO SCH ×3 (08:00→16:09)
[2023-05-02 10:04] LABS: ABG BASE EXCESS -4.1 mmol/L; ABG OXYGEN SATURATION 93.4 % (92.0-98.5); ABG PCO2 31.4 mmHg (35.0-45.0); ABG PH 7.415 (7.350-7.450); ABG PO2 68.6 mmHg (75.0-100.0); ABG TOTAL HEMOGLOBIN 10.3 G/dL (13.5-18.0); AaDO2 216.5 mmHg; COHb 0.4 % (0.5-1.5); MetHb 0.2 % (0.0-1.5); O2Hb 92.8 % (94.0-97.0); PEEP,BG 5 cm H2O; SITE, ABG Right Radial; VT, ABG 500 mL
[2023-05-02] MEDS: IV NS 0.9% 1,000 ML IV PRN (10:36)
[2023-05-02 11:27] LABS: CREATININE KINASE (CK),MB 24.7 ng/mL (0.0-10.4)
[2023-05-02] MEDS: NEOMY SULF/BACITRAC ZN/POLY 15 GM TUBE TP SCH ×2 (12:30→12:31)
[2023-05-02] MEDS: Z GUARD REMEDY 4 OZ OINT TP SCH (12:31)
[2023-05-02] MEDS: PANTOPRAZOLE 40 MG/PACK PACK PO SCH (15:02)
[2023-05-02] MEDS: ASPIRIN 81 MG TAB.CHEW PO SCH (15:02)
[2023-05-02] MEDS: QUETIAPINE FUMARATE 25 MG TABLET PO SCH ×2 (15:02→16:09)
[2023-05-02] MEDS: AMIODARONE HCL 200 MG TABLET PO SCH ×2 (15:03→16:09)
[2023-05-02] MEDS: CILOSTAZOL 100 MG TABLET PO SCH ×2 (15:03→16:09)
[2023-05-02] MEDS: FINASTERIDE (5 MG) 5 MG TABLET PO SCH (15:04)
[2023-05-02] MEDS: TAMSULOSIN 0.4 MG CAP.SR.24H PO SCH (15:04)
[2023-05-02] MEDS: HEPARIN SODIUM, PORCINE 5000 UNITS/1 ML VIAL SQ SCH ×2 (15:05→21:13)
[2023-05-02] MEDS: VANCOMYCIN POST DIALYSIS 500MG IV PRN ×2 (16:10)
[2023-05-02] MEDS: SOD FERRIC GLUC 125 MG in IV NS 0.9% 100 ML IV SCH (17:54)
[2023-05-03] VITALS (23 sets, daily range): BP systolic 94–139; BP diastolic 68–80; TEMP 96.9–98.8; O2SAT 93–98
[2023-05-03] MEDS: GABAPENTIN 400 MG CAPSULE PO SCH ×3 (00:22→20:33)
[2023-05-03] MEDS: BLOOD SUGAR DIAGNOSTIC 1 EACH STRIP IN SCH ×4 (00:23→19:06)
[2023-05-03] MEDS: HYDROCORTISONE SOD SUCCINATE 100 MG/2 ML VIAL IV SCH ×3 (05:01→20:35)
[2023-05-03] MEDS: PIPERACILLIN /TAZOBACTAM 2.25 G in IV D5W 50 ML IV SCH ×3 (05:01→21:11)
[2023-05-03 05:26] LABS: BASOPHILS % (AUTO) 0.1 % (0.0-2.0); HEMATOCRIT 29 % (39-51); HEMOGLOBIN 9.1 g/dL (13.5-17.5); LYMPHOCYTES # (AUTO) 0.4 K/uL (0.8-4.8); LYMPHOCYTES % (AUTO) 3.2 % (20.0-44.0); MEAN CORPUSCULAR HEMOGLOBIN 30 PG (26.0-33.0); MEAN CORPUSCULAR HGB CONC 32 g/dl (31.0-36.0); MEAN CORPUSCULAR VOLUME 93 fL (80-96); MONOCYTES # (AUTO) 0.7 K/uL (0.1-1.30); MONOCYTES % (AUTO) 5.2 % (2.0-12.0); NEUTROPHILS # (AUTO) 12.5 K/uL (1.8-8.9); NEUTROPHILS % (AUTO) 91.5 % (43.0-81.0); PLATELET COUNT (AUTO) 153 K/uL (150-450); RED BLOOD CELL COUNT(AUTO) 3.08 MIL/uL (4.5-6.0); RED CELL DISTRIBUTION WIDTH 21.4 % (11.5-15.0); WHITE BLOOD COUNT (AUTO) 13.6 K/uL (4.3-11.0)
[2023-05-03 05:28] LABS: ABG OXYGEN SATURATION 89.2 % (92.0-98.5); ABG PCO2 34.8 mmHg (35.0-45.0); ABG PH 7.403 (7.350-7.450); ABG PO2 57.9 mmHg (75.0-100.0); ABG TOTAL HEMOGLOBIN 10.4 G/dL (13.5-18.0); AaDO2 259.5 mmHg; COHb 0.7 % (0.5-1.5); MetHb 0.2 % (0.0-1.5); O2Hb 88.4 % (94.0-97.0); SITE, ABG Right Brachial; VENT MODE, BG SIMV4 VT500 50% +5 PS10
[2023-05-03 05:32] LABS: CREATININE 3.7 mg/dL (0.6-1.3); POTASSIUM 4.3 mmol/L (3.5-5.1)
[2023-05-03] MEDS: NEPRO 1,000 ML BOTTLE GT PRN (06:07)
[2023-05-03] MEDS: PROSOURCE / PROSTAT (PYXIS) 30 ML UDC PO SCH ×3 (10:59→20:34)
[2023-05-03] MEDS: IV NS 0.9% 1,000 ML IV PRN (11:00)
[2023-05-03] MEDS: QUETIAPINE FUMARATE 25 MG TABLET PO SCH ×2 (11:00→20:34)
[2023-05-03] MEDS: FINASTERIDE (5 MG) 5 MG TABLET PO SCH (11:01)
[2023-05-03] MEDS: ASPIRIN 81 MG TAB.CHEW PO SCH (11:01)
[2023-05-03] MEDS: PANTOPRAZOLE 40 MG/PACK PACK PO SCH (11:01)
[2023-05-03] MEDS: CILOSTAZOL 100 MG TABLET PO SCH ×2 (11:01→20:31)
[2023-05-03] MEDS: TAMSULOSIN 0.4 MG CAP.SR.24H PO SCH (11:01)
[2023-05-03] MEDS: AMIODARONE HCL 200 MG TABLET PO SCH ×2 (11:01→20:33)
[2023-05-03] MEDS: Z GUARD REMEDY 4 OZ OINT TP SCH (11:02)
[2023-05-03] MEDS: NEOMY SULF/BACITRAC ZN/POLY 15 GM TUBE TP SCH ×2 (11:02)
[2023-05-03] MEDS: HEPARIN SODIUM, PORCINE 5000 UNITS/1 ML VIAL SQ SCH ×2 (11:03→20:35)
[2023-05-03] MEDS: VANCOMYCIN POST DIALYSIS 500MG IV PRN ×2 (20:35)
[2023-05-04] VITALS (33 sets, daily range): BP systolic 99–161; BP diastolic 58–91; TEMP 97.9–98; O2SAT 91–100
[2023-05-04] MEDS: GABAPENTIN 400 MG CAPSULE PO SCH ×3 (00:43→16:28)
[2023-05-04] MEDS: BLOOD SUGAR DIAGNOSTIC 1 EACH STRIP IN SCH ×4 (00:43→18:03)
[2023-05-04] MEDS: INSULIN REGULAR, HUMAN 100 UNIT/ML 3 ML VIAL SQ PRN ×2 (00:44→06:11)
[2023-05-04 04:42] LABS: BASOPHILS % (AUTO) 0.1 % (0.0-2.0); HEMATOCRIT 30 % (39-51); HEMOGLOBIN 9.4 g/dL (13.5-17.5); LYMPHOCYTES # (AUTO) 0.4 K/uL (0.8-4.8); LYMPHOCYTES % (AUTO) 2.9 % (20.0-44.0); MEAN CORPUSCULAR HEMOGLOBIN 29 PG (26.0-33.0); MEAN CORPUSCULAR HGB CONC 31 g/dl (31.0-36.0); MEAN CORPUSCULAR VOLUME 94 fL (80-96); MONOCYTES # (AUTO) 0.7 K/uL (0.1-1.30); MONOCYTES % (AUTO) 5.5 % (2.0-12.0); NEUTROPHILS # (AUTO) 12.3 K/uL (1.8-8.9); NEUTROPHILS % (AUTO) 91.5 % (43.0-81.0); PLATELET COUNT (AUTO) 153 K/uL (150-450); RED BLOOD CELL COUNT(AUTO) 3.21 MIL/uL (4.5-6.0); RED CELL DISTRIBUTION WIDTH 20.9 % (11.5-15.0); WHITE BLOOD COUNT (AUTO) 13.5 K/uL (4.3-11.0)
[2023-05-04 04:55] LABS: CALCIUM, SERUM 9.1 mg/dL (8.5-10.1); CREATININE 3.4 mg/dL (0.6-1.3); POTASSIUM 4.1 mmol/L (3.5-5.1)
[2023-05-04] MEDS: PIPERACILLIN /TAZOBACTAM 2.25 G in IV D5W 50 ML IV SCH ×3 (05:24→21:43)
[2023-05-04] MEDS: HYDROCORTISONE SOD SUCCINATE 100 MG/2 ML VIAL IV SCH ×3 (05:24→21:43)
[2023-05-04 05:39] LABS: ABG BASE EXCESS -4.8 mmol/L; ABG OXYGEN SATURATION 90.7 % (92.0-98.5); ABG PCO2 31.9 mmHg (35.0-45.0); ABG PH 7.397 (7.350-7.450); ABG PO2 60.4 mmHg (75.0-100.0); ABG TOTAL HEMOGLOBIN 10.8 G/dL (13.5-18.0); AaDO2 332.3 mmHg; COHb 0.6 % (0.5-1.5); MetHb 0.2 % (0.0-1.5); SITE, ABG Left Radial; VENT MODE, BG SIMV4 500 60% +5 PS10
[2023-05-04] MEDS: PANTOPRAZOLE 40 MG/PACK PACK PO SCH (07:30)
[2023-05-04] MEDS: CILOSTAZOL 100 MG TABLET PO SCH ×2 (07:30→16:24)
[2023-05-04] MEDS: PROSOURCE / PROSTAT (PYXIS) 30 ML UDC PO SCH ×3 (08:00→16:28)
[2023-05-04] MEDS: ASPIRIN 81 MG TAB.CHEW PO SCH (09:00)
[2023-05-04] MEDS: HEPARIN SODIUM, PORCINE 5000 UNITS/1 ML VIAL SQ SCH ×2 (09:00→21:00)
[2023-05-04] MEDS: QUETIAPINE FUMARATE 25 MG TABLET PO SCH ×2 (09:00→16:28)
[2023-05-04] MEDS: FINASTERIDE (5 MG) 5 MG TABLET PO SCH (09:00)
[2023-05-04] MEDS: AMIODARONE HCL 200 MG TABLET PO SCH ×2 (09:00→16:24)
[2023-05-04] MEDS: TAMSULOSIN 0.4 MG CAP.SR.24H PO SCH (09:00)
[2023-05-04] MEDS: NEOMY SULF/BACITRAC ZN/POLY 15 GM TUBE TP SCH ×2 (09:38→09:39)
[2023-05-04] MEDS: Z GUARD REMEDY 4 OZ OINT TP SCH (09:39)
[2023-05-04] MEDS: NOREPINEPHRINE 8 MG in IV NS 0.9% 242 ML IV PRN (15:11)
[2023-05-04] MEDS: VANCOMYCIN POST DIALYSIS 500MG IV PRN ×2 (22:21)
[2023-05-05] VITALS (35 sets, daily range): BP systolic 77–145; BP diastolic 44–79; TEMP 97.9–99; O2SAT 94–100
[2023-05-05] MEDS: BLOOD SUGAR DIAGNOSTIC 1 EACH STRIP IN SCH ×4 (00:24→18:07)
[2023-05-05] MEDS: INSULIN REGULAR, HUMAN 100 UNIT/ML 3 ML VIAL SQ PRN ×2 (00:25→05:49)
[2023-05-05] MEDS: GABAPENTIN 400 MG CAPSULE PO SCH ×3 (01:00→16:57)
[2023-05-05 04:46] LABS: BASOPHILS % (AUTO) 0.2 % (0.0-2.0); HEMATOCRIT 27 % (39-51); HEMOGLOBIN 8.6 g/dL (13.5-17.5); LYMPHOCYTES # (AUTO) 0.5 K/uL (0.8-4.8); LYMPHOCYTES % (AUTO) 4.7 % (20.0-44.0); MEAN CORPUSCULAR HEMOGLOBIN 30 PG (26.0-33.0); MEAN CORPUSCULAR HGB CONC 32 g/dl (31.0-36.0); MEAN CORPUSCULAR VOLUME 92 fL (80-96); MONOCYTES # (AUTO) 0.6 K/uL (0.1-1.30); MONOCYTES % (AUTO) 5.1 % (2.0-12.0); NEUTROPHILS # (AUTO) 10.6 K/uL (1.8-8.9); PLATELET COUNT (AUTO) 151 K/uL (150-450); RED BLOOD CELL COUNT(AUTO) 2.88 MIL/uL (4.5-6.0); WHITE BLOOD COUNT (AUTO) 11.8 K/uL (4.3-11.0)
[2023-05-05 05:11] LABS: CALCIUM, SERUM 8.7 mg/dL (8.5-10.1); CREATININE 3.3 mg/dL (0.6-1.3); POTASSIUM 3.8 mmol/L (3.5-5.1)
[2023-05-05] MEDS: PIPERACILLIN /TAZOBACTAM 2.25 G in IV D5W 50 ML IV SCH ×3 (05:16→21:08)
[2023-05-05] MEDS: HYDROCORTISONE SOD SUCCINATE 100 MG/2 ML VIAL IV SCH ×3 (05:16→21:07)
[2023-05-05 05:30] LABS: ANISOCYTOSIS 1+; LYMPHOCYTES % (MANUAL) 3 % (16-48); MONOCYTES % (MANUAL) 2 % (0-11.0); NEUTROPHILS % (MANUAL) 95 (42-76); PLATELET ESTIMATE ADEQUATE
[2023-05-05 05:31] LABS: OVALOCYTES 1+
[2023-05-05] MEDS: IV NS 0.9% 250 ML IV PRN (05:53)
[2023-05-05] MEDS: PANTOPRAZOLE 40 MG/PACK PACK PO SCH (07:30)
[2023-05-05] MEDS: CILOSTAZOL 100 MG TABLET PO SCH ×2 (07:30→16:30)
[2023-05-05] MEDS: PROSOURCE / PROSTAT (PYXIS) 30 ML UDC PO SCH ×3 (07:59→16:57)
[2023-05-05] MEDS: ASPIRIN 81 MG TAB.CHEW PO SCH (08:24)
[2023-05-05] MEDS: QUETIAPINE FUMARATE 25 MG TABLET PO SCH ×2 (08:25→16:57)
[2023-05-05] MEDS: AMIODARONE HCL 200 MG TABLET PO SCH ×2 (08:25→16:56)
[2023-05-05] MEDS: FINASTERIDE (5 MG) 5 MG TABLET PO SCH (08:25)
[2023-05-05] MEDS: TAMSULOSIN 0.4 MG CAP.SR.24H PO SCH (08:25)
[2023-05-05] MEDS: NEOMY SULF/BACITRAC ZN/POLY 15 GM TUBE TP SCH ×2 (08:27)
[2023-05-05] MEDS: Z GUARD REMEDY 4 OZ OINT TP SCH (08:27)
[2023-05-05] MEDS: HEPARIN SODIUM, PORCINE 5000 UNITS/1 ML VIAL SQ SCH ×2 (08:29→21:12)
[2023-05-05] MEDS ORDERED: DC PROPOFOL WHEN EXTUBATED XX PRN (14:00)
[2023-05-05] MEDS: VANCOMYCIN POST DIALYSIS 500MG IV PRN ×2 (14:10)
[2023-05-05 15:16] LABS: ABG OXYGEN SATURATION 95.4 % (92.0-98.5); ABG PCO2 30.6 mmHg (35.0-45.0); ABG PH 7.458 (7.350-7.450); ABG PO2 79.8 mmHg (75.0-100.0); ABG TOTAL HEMOGLOBIN 10.3 G/dL (13.5-18.0); AaDO2 170.2 mmHg; COHb 0.2 % (0.5-1.5); MetHb 0.3 % (0.0-1.5); O2Hb 94.9 % (94.0-97.0); SITE, ABG Right Radial; VENT MODE, BG simv 4 ps 10 +5 40%
[2023-05-05] MEDS: NOREPINEPHRINE 8 MG in IV NS 0.9% 242 ML IV PRN (16:56)
[2023-05-06] VITALS (24 sets, daily range): BP systolic 98–129; BP diastolic 58–108; TEMP 97.2–98.4; O2SAT 88–100
[2023-05-06] MEDS: BLOOD SUGAR DIAGNOSTIC 1 EACH STRIP IN SCH ×4 (00:21→18:00)
[2023-05-06] MEDS: GABAPENTIN 400 MG CAPSULE PO SCH ×3 (00:22→16:04)
[2023-05-06 04:03] LABS: BASOPHILS % (AUTO) 0.1 % (0.0-2.0); EOSINOPHILS % (AUTO) 0.1 % (0.0-6.0); HEMATOCRIT 28 % (39-51); LYMPHOCYTES # (AUTO) 0.5 K/uL (0.8-4.8); LYMPHOCYTES % (AUTO) 4.5 % (20.0-44.0); MEAN CORPUSCULAR HEMOGLOBIN 30 PG (26.0-33.0); MEAN CORPUSCULAR HGB CONC 32 g/dl (31.0-36.0); MEAN CORPUSCULAR VOLUME 94 fL (80-96); MONOCYTES # (AUTO) 0.7 K/uL (0.1-1.30); MONOCYTES % (AUTO) 6.5 % (2.0-12.0); NEUTROPHILS % (AUTO) 88.8 % (43.0-81.0); PLATELET COUNT (AUTO) 168 K/uL (150-450); RED BLOOD CELL COUNT(AUTO) 3.04 MIL/uL (4.5-6.0); RED CELL DISTRIBUTION WIDTH 20.7 % (11.5-15.0); WHITE BLOOD COUNT (AUTO) 11.2 K/uL (4.3-11.0)
[2023-05-06 04:22] LABS: CALCIUM, SERUM 9.2 mg/dL (8.5-10.1); CREATININE 3.2 mg/dL (0.6-1.3); POTASSIUM 3.7 mmol/L (3.5-5.1)
[2023-05-06 04:29] LABS: IRON, SERUM 48 ug/dl (50-175); TOTAL IRON BINDING CAPACITY 149 ug/dl (250-450)
[2023-05-06 04:30] LABS: ANISOCYTOSIS 1+; LYMPHOCYTES % (MANUAL) 5 % (16-48); MONOCYTES % (MANUAL) 1 % (0-11.0); MYELOCYTES % 2 % (0-0); NEUTROPHILS % (MANUAL) 92 (42-76); PLATELET ESTIMATE ADEQUATE
[2023-05-06] MEDS: PIPERACILLIN /TAZOBACTAM 2.25 G in IV D5W 50 ML IV SCH ×3 (05:17→21:04)
[2023-05-06] MEDS: HYDROCORTISONE SOD SUCCINATE 100 MG/2 ML VIAL IV SCH ×3 (05:41→21:04)
[2023-05-06] MEDS: CILOSTAZOL 100 MG TABLET PO SCH ×2 (07:30→16:04)
[2023-05-06] MEDS: PANTOPRAZOLE 40 MG/PACK PACK PO SCH (07:30)
[2023-05-06] MEDS: PROSOURCE / PROSTAT (PYXIS) 30 ML UDC PO SCH ×3 (07:42→16:04)
[2023-05-06 08:54] LABS: ABG BASE EXCESS -4.6 mmol/L; ABG OXYGEN SATURATION 97.1 % (92.0-98.5); ABG PCO2 38.7 mmHg (35.0-45.0); ABG PH 7.346 (7.350-7.450); ABG PO2 106.7 mmHg (75.0-100.0); ABG TOTAL HEMOGLOBIN 10.2 G/dL (13.5-18.0); AaDO2 206.3 mmHg; COHb 0.3 % (0.5-1.5); MetHb 0.5 % (0.0-1.5); O2Hb 96.3 % (94.0-97.0); SITE, ABG Right Brachial; VENT MODE, BG SIMPLE MASK
[2023-05-06] MEDS: AMIODARONE HCL 200 MG TABLET PO SCH ×2 (09:00→16:04)
[2023-05-06] MEDS: TAMSULOSIN 0.4 MG CAP.SR.24H PO SCH (09:00)
[2023-05-06] MEDS: FINASTERIDE (5 MG) 5 MG TABLET PO SCH (09:00)
[2023-05-06] MEDS: QUETIAPINE FUMARATE 25 MG TABLET PO SCH ×2 (09:00→16:04)
[2023-05-06] MEDS: ASPIRIN 81 MG TAB.CHEW PO SCH (09:00)
[2023-05-06] MEDS: NEOMY SULF/BACITRAC ZN/POLY 15 GM TUBE TP SCH ×2 (09:09)
[2023-05-06] MEDS: Z GUARD REMEDY 4 OZ OINT TP SCH (09:09)
[2023-05-06] MEDS: HEPARIN SODIUM, PORCINE 5000 UNITS/1 ML VIAL SQ SCH ×2 (09:12→21:08)
[2023-05-07] VITALS (24 sets, daily range): BP systolic 102–138; BP diastolic 66–85; TEMP 97.8–98.7; O2SAT 96–100
[2023-05-07] MEDS: BLOOD SUGAR DIAGNOSTIC 1 EACH STRIP IN SCH ×6 (01:12→23:46)
[2023-05-07] MEDS: INSULIN REGULAR, HUMAN 100 UNIT/ML 3 ML VIAL SQ PRN ×4 (01:13→18:11)
[2023-05-07] MEDS: GABAPENTIN 400 MG CAPSULE PO SCH ×3 (01:13→16:30)
[2023-05-07 03:55] LABS: CALCIUM, SERUM 8.3 mg/dL (8.5-10.1); CREATININE 3.9 mg/dL (0.6-1.3); POTASSIUM 4.2 mmol/L (3.5-5.1)
[2023-05-07] MEDS: PIPERACILLIN /TAZOBACTAM 2.25 G in IV D5W 50 ML IV SCH ×3 (04:20→21:05)
[2023-05-07] MEDS: HYDROCORTISONE SOD SUCCINATE 100 MG/2 ML VIAL IV SCH ×3 (04:20→21:02)
[2023-05-07] MEDS: CILOSTAZOL 100 MG TABLET PO SCH ×2 (07:30→16:29)
[2023-05-07] MEDS: PROSOURCE / PROSTAT (PYXIS) 30 ML UDC PO SCH ×3 (08:00→16:30)
[2023-05-07] MEDS: ASPIRIN 81 MG TAB.CHEW PO SCH (08:57)
[2023-05-07] MEDS: PANTOPRAZOLE 40 MG/PACK PACK PO SCH (08:57)
[2023-05-07] MEDS: TAMSULOSIN 0.4 MG CAP.SR.24H PO SCH (08:58)
[2023-05-07] MEDS: AMIODARONE HCL 200 MG TABLET PO SCH ×2 (08:58→16:29)
[2023-05-07] MEDS: QUETIAPINE FUMARATE 25 MG TABLET PO SCH ×2 (08:59→16:30)
[2023-05-07] MEDS: FINASTERIDE (5 MG) 5 MG TABLET PO SCH (08:59)
[2023-05-07] MEDS: HEPARIN SODIUM, PORCINE 5000 UNITS/1 ML VIAL SQ SCH ×2 (09:00→21:04)
[2023-05-07] MEDS: Z GUARD REMEDY 4 OZ OINT TP SCH (09:05)
[2023-05-07] MEDS: NEOMY SULF/BACITRAC ZN/POLY 15 GM TUBE TP SCH ×2 (09:22→09:23)
[2023-05-07] MEDS: IV NS 0.9% 250 ML IV PRN (13:34)
[2023-05-07] MEDS: VANCOMYCIN POST DIALYSIS 500MG IV PRN ×2 (14:44)
[2023-05-08] VITALS (18 sets, daily range): BP systolic 106–146; BP diastolic 63–103; TEMP 97.1–97.9; O2SAT 95–100
[2023-05-08] MEDS: GABAPENTIN 400 MG CAPSULE PO SCH ×3 (02:20→17:14)
[2023-05-08] MEDS: HYDROCORTISONE SOD SUCCINATE 100 MG/2 ML VIAL IV SCH ×3 (05:45→22:00)
[2023-05-08] MEDS: PIPERACILLIN /TAZOBACTAM 2.25 G in IV D5W 50 ML IV SCH ×2 (05:46→12:30)
[2023-05-08] MEDS: BLOOD SUGAR DIAGNOSTIC 1 EACH STRIP IN SCH (06:02)
[2023-05-08] MEDS ORDERED: DEXTROSE 50%-WATER 50 ML DISP.SYRIN IV PRN (08:00)
[2023-05-08] MEDS: PANTOPRAZOLE 40 MG/PACK PACK PO SCH (09:33)
[2023-05-08] MEDS: PROSOURCE / PROSTAT (PYXIS) 30 ML UDC PO SCH ×3 (09:33→17:13)
[2023-05-08] MEDS: ASPIRIN 81 MG TAB.CHEW PO SCH (09:33)
[2023-05-08] MEDS: TAMSULOSIN 0.4 MG CAP.SR.24H PO SCH (09:33)
[2023-05-08] MEDS: CILOSTAZOL 100 MG TABLET PO SCH ×2 (09:33→17:12)
[2023-05-08] MEDS: AMIODARONE HCL 200 MG TABLET PO SCH ×2 (09:36→17:12)
[2023-05-08] MEDS: Z GUARD REMEDY 4 OZ OINT TP SCH (09:36)
[2023-05-08] MEDS: FINASTERIDE (5 MG) 5 MG TABLET PO SCH (09:36)
[2023-05-08] MEDS: NEOMY SULF/BACITRAC ZN/POLY 15 GM TUBE TP SCH ×2 (09:40→09:41)
[2023-05-08] MEDS: HEPARIN SODIUM, PORCINE 5000 UNITS/1 ML VIAL SQ SCH ×2 (09:42→22:13)
[2023-05-08] MEDS: GLUCERNA SHAKE 237 ML CAN PO SCH ×2 (12:00→17:15)
[2023-05-08] MEDS: BLOOD SUGAR DIAGNOSTIC 1 EACH STRIP VI SCH ×3 (12:30→22:14)
[2023-05-08] MEDS: INSULIN REGULAR, HUMAN 100 UNIT/ML 3 ML VIAL SQ PRN (12:33)
[2023-05-08] MEDS: *INSULIN REGULAR(HUMULIN R)HUM 100 UNIT/ML VIAL SQ PRN (17:23)
[2023-05-09] VITALS: BP 118/83; TEMP 98.7; O2SAT 96
[2023-05-09] MEDS: GABAPENTIN 400 MG CAPSULE PO SCH ×3 (00:15→17:00)
[2023-05-09 04:00] VITALS: BP 121/70; TEMP 98; O2SAT 98
[2023-05-09] MEDS: HYDROCORTISONE SOD SUCCINATE 100 MG/2 ML VIAL IV SCH ×3 (05:04→20:20)
[2023-05-09 06:13] LABS: BASOPHILS % (AUTO) 0.3 % (0.0-2.0); HEMATOCRIT 33 % (39-51); HEMOGLOBIN 10.3 g/dL (13.5-17.5); LYMPHOCYTES # (AUTO) 0.3 K/uL (0.8-4.8); MEAN CORPUSCULAR HEMOGLOBIN 30 PG (26.0-33.0); MEAN CORPUSCULAR HGB CONC 32 g/dl (31.0-36.0); MEAN CORPUSCULAR VOLUME 95 fL (80-96); MONOCYTES # (AUTO) 0.6 K/uL (0.1-1.30); MONOCYTES % (AUTO) 5.2 % (2.0-12.0); NEUTROPHILS # (AUTO) 10.4 K/uL (1.8-8.9); NEUTROPHILS % (AUTO) 91.5 % (43.0-81.0); PLATELET COUNT (AUTO) 156 K/uL (150-450); RED BLOOD CELL COUNT(AUTO) 3.43 MIL/uL (4.5-6.0); RED CELL DISTRIBUTION WIDTH 20.2 % (11.5-15.0); WHITE BLOOD COUNT (AUTO) 11.3 K/uL (4.3-11.0)
[2023-05-09 07:17] LABS: ALBUMIN 2.3 g/dL (3.4-5.0); BILIRUBIN,TOTAL 0.7 mg/dL (0.2-1.0); CALCIUM, SERUM 8.2 mg/dL (8.5-10.1); CREATININE 4.5 mg/dL (0.6-1.3); POTASSIUM 4.8 mmol/L (3.5-5.1); TOTAL PROTEIN, SERUM 6.3 g/dL (6.4-8.2)
[2023-05-09] MEDS: CILOSTAZOL 100 MG TABLET PO SCH ×2 (07:42→17:00)
[2023-05-09] MEDS: PANTOPRAZOLE 40 MG/PACK PACK PO SCH (07:42)
[2023-05-09] MEDS: BLOOD SUGAR DIAGNOSTIC 1 EACH STRIP VI SCH ×4 (07:54→21:23)
[2023-05-09] MEDS: *INSULIN REGULAR(HUMULIN R)HUM 100 UNIT/ML VIAL SQ PRN ×3 (07:55→17:10)
[2023-05-09 08:00] VITALS: BP 117/83; TEMP 97.7; O2SAT 98
[2023-05-09] MEDS: TAMSULOSIN 0.4 MG CAP.SR.24H PO SCH (08:21)
[2023-05-09] MEDS: ASPIRIN 81 MG TAB.CHEW PO SCH (08:21)
[2023-05-09] MEDS: FINASTERIDE (5 MG) 5 MG TABLET PO SCH (08:21)
[2023-05-09] MEDS: HEPARIN SODIUM, PORCINE 5000 UNITS/1 ML VIAL SQ SCH ×2 (08:25→20:23)
[2023-05-09] MEDS: PROSOURCE / PROSTAT (PYXIS) 30 ML UDC PO SCH ×3 (08:28→17:03)
[2023-05-09] MEDS: GLUCERNA SHAKE 237 ML CAN PO SCH ×3 (08:28→17:01)
[2023-05-09] MEDS: Z GUARD REMEDY 4 OZ OINT TP SCH (08:29)
[2023-05-09] MEDS: NEOMY SULF/BACITRAC ZN/POLY 15 GM TUBE TP SCH ×2 (08:29)
[2023-05-09] MEDS: AMIODARONE HCL 200 MG TABLET PO SCH ×2 (08:31→17:02)
[2023-05-09 12:00] VITALS: BP 121/80; TEMP 98
[2023-05-09] MEDS: IV NS 0.9% 250 ML IV PRN (13:38)
[2023-05-09 16:00] VITALS: BP 128/73; TEMP 98.2; O2SAT 98
[2023-05-09 20:00] VITALS: BP 139/78; TEMP 98.3; O2SAT 98
[2023-05-09] MEDS: INSULIN REGULAR, HUMAN 100 UNIT/ML 3 ML VIAL SQ PRN (21:26)
[2023-05-10] VITALS: BP 128/73; TEMP 98.6; O2SAT 96
[2023-05-10] MEDS: GABAPENTIN 400 MG CAPSULE PO SCH ×3 (00:17→17:36)
[2023-05-10 04:00] VITALS: BP 123/88; TEMP 98; O2SAT 98
[2023-05-10] MEDS: HYDROCORTISONE SOD SUCCINATE 100 MG/2 ML VIAL IV SCH ×3 (04:07→17:29)
[2023-05-10] MEDS: BLOOD SUGAR DIAGNOSTIC 1 EACH STRIP VI SCH ×4 (06:35→21:34)
[2023-05-10] MEDS: INSULIN REGULAR, HUMAN 100 UNIT/ML 3 ML VIAL SQ PRN ×3 (06:37→17:30)
[2023-05-10 06:55] LABS: BASOPHILS % (AUTO) 0.3 % (0.0-2.0); HEMATOCRIT 31 % (39-51); LYMPHOCYTES # (AUTO) 0.4 K/uL (0.8-4.8); LYMPHOCYTES % (AUTO) 3.2 % (20.0-44.0); MEAN CORPUSCULAR HEMOGLOBIN 30 PG (26.0-33.0); MEAN CORPUSCULAR HGB CONC 32 g/dl (31.0-36.0); MEAN CORPUSCULAR VOLUME 92 fL (80-96); MONOCYTES # (AUTO) 0.5 K/uL (0.1-1.30); MONOCYTES % (AUTO) 4.5 % (2.0-12.0); NEUTROPHILS # (AUTO) 10.1 K/uL (1.8-8.9); PLATELET COUNT (AUTO) 154 K/uL (150-450); RED BLOOD CELL COUNT(AUTO) 3.36 MIL/uL (4.5-6.0); RED CELL DISTRIBUTION WIDTH 19.9 % (11.5-15.0)
[2023-05-10 07:15] LABS: CALCIUM, SERUM 8.7 mg/dL (8.5-10.1); CREATININE 3.6 mg/dL (0.6-1.3); POTASSIUM 4.1 mmol/L (3.5-5.1)
[2023-05-10 08:00] VITALS: BP 133/66; TEMP 97.7; O2SAT 99
[2023-05-10] MEDS: PIPERACILLIN /TAZOBACTAM 2.25 G in IV D5W 50 ML IV SCH ×3 (08:20→21:14)
[2023-05-10] MEDS: ASPIRIN 81 MG TAB.CHEW PO SCH (08:20)
[2023-05-10] MEDS: PANTOPRAZOLE 40 MG/PACK PACK PO SCH (08:20)
[2023-05-10] MEDS: CILOSTAZOL 100 MG TABLET PO SCH ×2 (08:21→17:28)
[2023-05-10] MEDS: FINASTERIDE (5 MG) 5 MG TABLET PO SCH (08:21)
[2023-05-10] MEDS: TAMSULOSIN 0.4 MG CAP.SR.24H PO SCH (08:21)
[2023-05-10] MEDS: AMIODARONE HCL 200 MG TABLET PO SCH ×2 (08:21→17:29)
[2023-05-10] MEDS: HEPARIN SODIUM, PORCINE 5000 UNITS/1 ML VIAL SQ SCH ×2 (08:23→21:15)
[2023-05-10] MEDS: GLUCERNA SHAKE 237 ML CAN PO SCH ×3 (08:23→17:44)
[2023-05-10] MEDS: PROSOURCE / PROSTAT (PYXIS) 30 ML UDC PO SCH ×3 (08:24→17:28)
[2023-05-10] MEDS: NEOMY SULF/BACITRAC ZN/POLY 15 GM TUBE TP SCH ×2 (08:24→08:25)
[2023-05-10] MEDS: Z GUARD REMEDY 4 OZ OINT TP SCH (08:26)
[2023-05-10 12:00] VITALS: BP 119/75; TEMP 98.1; O2SAT 100
[2023-05-10] MEDS: ALBUMIN 25% 25 GM in PREMIX 1 EA IV PRN (12:22)
[2023-05-10] MEDS ORDERED: HYDROCORTISONE SOD SUCCINATE 100 MG/2 ML VIAL IV SCH (13:00)
[2023-05-10 16:00] VITALS: BP 113/61; TEMP 98.1; O2SAT 95
[2023-05-10 20:00] VITALS: BP 128/82; TEMP 98.2; O2SAT 99
[2023-05-10] MEDS: *INSULIN REGULAR(HUMULIN R)HUM 100 UNIT/ML VIAL SQ PRN (21:35)
[2023-05-11] VITALS: BP 107/64; TEMP 98.2; O2SAT 99
[2023-05-11] MEDS: GABAPENTIN 400 MG CAPSULE PO SCH ×3 (01:42→17:47)
[2023-05-11 04:00] VITALS: BP 118/60; TEMP 98; O2SAT 99
[2023-05-11] MEDS: PIPERACILLIN /TAZOBACTAM 2.25 G in IV D5W 50 ML IV SCH ×3 (05:50→21:33)
[2023-05-11 06:06] LABS: CALCIUM, SERUM 8.6 mg/dL (8.5-10.1); CREATININE 3.2 mg/dL (0.6-1.3); POTASSIUM 3.9 mmol/L (3.5-5.1)
[2023-05-11 06:19] LABS: EOSINOPHILS % (AUTO) 0.1 % (0.0-6.0); HEMATOCRIT 29 % (39-51); HEMOGLOBIN 9.3 g/dL (13.5-17.5); LYMPHOCYTES # (AUTO) 0.7 K/uL (0.8-4.8); LYMPHOCYTES % (AUTO) 6.5 % (20.0-44.0); MEAN CORPUSCULAR HEMOGLOBIN 29 PG (26.0-33.0); MEAN CORPUSCULAR HGB CONC 32 g/dl (31.0-36.0); MEAN CORPUSCULAR VOLUME 92 fL (80-96); MONOCYTES # (AUTO) 0.7 K/uL (0.1-1.30); NEUTROPHILS # (AUTO) 8.9 K/uL (1.8-8.9); NEUTROPHILS % (AUTO) 86.4 % (43.0-81.0); PLATELET COUNT (AUTO) 152 K/uL (150-450); RED BLOOD CELL COUNT(AUTO) 3.16 MIL/uL (4.5-6.0); RED CELL DISTRIBUTION WIDTH 20.1 % (11.5-15.0); WHITE BLOOD COUNT (AUTO) 10.3 K/uL (4.3-11.0)
[2023-05-11 08:00] VITALS: BP 120/71; TEMP 98.7; O2SAT 98
[2023-05-11] MEDS: GLUCERNA SHAKE 237 ML CAN PO SCH (08:49)
[2023-05-11] MEDS: BLOOD SUGAR DIAGNOSTIC 1 EACH STRIP VI SCH ×4 (08:49→21:56)
[2023-05-11] MEDS: PANTOPRAZOLE 40 MG/PACK PACK PO SCH (08:49)
[2023-05-11] MEDS: CILOSTAZOL 100 MG TABLET PO SCH ×2 (08:49→17:47)
[2023-05-11] MEDS: PROSOURCE / PROSTAT (PYXIS) 30 ML UDC PO SCH ×3 (08:50→17:48)
[2023-05-11] MEDS: TAMSULOSIN 0.4 MG CAP.SR.24H PO SCH (08:51)
[2023-05-11] MEDS: ASPIRIN 81 MG TAB.CHEW PO SCH (08:51)
[2023-05-11] MEDS: AMIODARONE HCL 200 MG TABLET PO SCH ×2 (08:52→17:48)
[2023-05-11] MEDS: HYDROCORTISONE SOD SUCCINATE 100 MG/2 ML VIAL IV SCH (08:52)
[2023-05-11] MEDS: FINASTERIDE (5 MG) 5 MG TABLET PO SCH (08:52)
[2023-05-11] MEDS: HEPARIN SODIUM, PORCINE 5000 UNITS/1 ML VIAL SQ SCH ×2 (08:54→21:33)
[2023-05-11] MEDS: NEOMY SULF/BACITRAC ZN/POLY 15 GM TUBE TP SCH ×2 (09:24→09:27)
[2023-05-11] MEDS: Z GUARD REMEDY 4 OZ OINT TP SCH (09:27)
[2023-05-11] MEDS ORDERED: NEPRO VAN 237 ML CAN PO PRN (11:30)
[2023-05-11 12:00] VITALS: BP 110/67; TEMP 98.9; O2SAT 99
[2023-05-11] MEDS: INSULIN REGULAR, HUMAN 100 UNIT/ML 3 ML VIAL SQ PRN ×2 (12:12→18:05)
[2023-05-11] MEDS: IV NS 0.9% 250 ML IV PRN (13:27)
[2023-05-11 16:00] VITALS: BP 120/70; TEMP 98.5; O2SAT 99
[2023-05-11 20:00] VITALS: BP 131/71; TEMP 97.5; O2SAT 92
[2023-05-11] MEDS: *INSULIN REGULAR(HUMULIN R)HUM 100 UNIT/ML VIAL SQ PRN (21:57)
[2023-05-12] VITALS: BP 126/75; TEMP 98; O2SAT 98
[2023-05-12] MEDS: GABAPENTIN 400 MG CAPSULE PO SCH ×2 (01:47→08:53)
[2023-05-12 04:00] VITALS: BP 112/62; TEMP 97.6; O2SAT 97
[2023-05-12] MEDS: PIPERACILLIN /TAZOBACTAM 2.25 G in IV D5W 50 ML IV SCH ×2 (04:05→12:58)
[2023-05-12 07:03] LABS: BASOPHILS % (AUTO) 0.1 % (0.0-2.0); EOSINOPHILS % (AUTO) 0.3 % (0.0-6.0); HEMATOCRIT 28 % (39-51); HEMOGLOBIN 9.2 g/dL (13.5-17.5); LYMPHOCYTES # (AUTO) 0.8 K/uL (0.8-4.8); LYMPHOCYTES % (AUTO) 8.1 % (20.0-44.0); MEAN CORPUSCULAR HEMOGLOBIN 30 PG (26.0-33.0); MEAN CORPUSCULAR HGB CONC 33 g/dl (31.0-36.0); MEAN CORPUSCULAR VOLUME 92 fL (80-96); MONOCYTES # (AUTO) 0.8 K/uL (0.1-1.30); MONOCYTES % (AUTO) 7.4 % (2.0-12.0); NEUTROPHILS # (AUTO) 8.7 K/uL (1.8-8.9); NEUTROPHILS % (AUTO) 84.1 % (43.0-81.0); PLATELET COUNT (AUTO) 153 K/uL (150-450); RED BLOOD CELL COUNT(AUTO) 3.05 MIL/uL (4.5-6.0); RED CELL DISTRIBUTION WIDTH 19.9 % (11.5-15.0); WHITE BLOOD COUNT (AUTO) 10.4 K/uL (4.3-11.0)
[2023-05-12 07:39] LABS: CALCIUM, SERUM 7.8 mg/dL (8.5-10.1); CREATININE 3.7 mg/dL (0.6-1.3); POTASSIUM 4.1 mmol/L (3.5-5.1)
[2023-05-12 08:00] VITALS: BP 115/70; TEMP 98.9; O2SAT 99
[2023-05-12] MEDS ORDERED: AMOX-427 PO (08:43)
[2023-05-12] MEDS: PANTOPRAZOLE 40 MG/PACK PACK PO SCH (08:53)
[2023-05-12] MEDS: TAMSULOSIN 0.4 MG CAP.SR.24H PO SCH (08:54)
[2023-05-12] MEDS: AMIODARONE HCL 200 MG TABLET PO SCH (08:55)
[2023-05-12] MEDS: ASPIRIN 81 MG TAB.CHEW PO SCH (08:55)
[2023-05-12] MEDS: CILOSTAZOL 100 MG TABLET PO SCH (08:55)
[2023-05-12] MEDS: FINASTERIDE (5 MG) 5 MG TABLET PO SCH (08:55)
[2023-05-12] MEDS: PROSOURCE / PROSTAT (PYXIS) 30 ML UDC PO SCH ×2 (08:56→11:54)
[2023-05-12] MEDS: HEPARIN SODIUM, PORCINE 5000 UNITS/1 ML VIAL SQ SCH (08:56)
[2023-05-12] MEDS: BLOOD SUGAR DIAGNOSTIC 1 EACH STRIP VI SCH ×2 (08:56→11:54)
[2023-05-12] MEDS: Z GUARD REMEDY 4 OZ OINT TP SCH (09:48)
[2023-05-12] MEDS: NEOMY SULF/BACITRAC ZN/POLY 15 GM TUBE TP SCH ×2 (09:48)
[2023-05-12 12:00] VITALS: BP 122/67; TEMP 98.9; O2SAT 99
== END 2023-05-12 15:59 | DRG 870 ==
LOC: ER 10:07 → ICU 11:27 → TELE1 04-29 09:42 → ICU 04-29 13:01 → TELE-TD 05-08 16:45 → TELE1 05-09 12:38
PROVIDERS: ADMIT Internal Medicine; ATTEND Internal Medicine
PROC: 5A09357 Assistance with Respiratory Ventilation, Less than 24 Consecutive Hours, Continuous Positive Airway Pressure (ICD-10-PCS; principal; 2023-04-27)
PROC: 5A1D70Z Performance of Urinary Filtration, Intermittent, Less than 6 Hours Per Day (ICD-10-PCS; 2023-04-27)
PROC: 02HV33Z Insertion of Infusion Device into Superior Vena Cava, Percutaneous Approach (ICD-10-PCS; 2023-04-28)
PROC: B548ZZA Ultrasonography of Superior Vena Cava, Guidance (ICD-10-PCS; 2023-04-28)
PROC: 5A1955Z Respiratory Ventilation, Greater than 96 Consecutive Hours (ICD-10-PCS; 2023-04-29)
PROC: 0BH18EZ Insertion of Endotracheal Airway into Trachea, Via Natural or Artificial Opening Endoscopic (ICD-10-PCS; 2023-04-29)
PROC: 30233N1 Transfusion of Nonautologous Red Blood Cells into Peripheral Vein, Percutaneous Approach (ICD-10-PCS; 2023-04-29)
PROC: 5A12012 Performance of Cardiac Output, Single, Manual (ICD-10-PCS; 2023-04-29)
PROC: 05HB33Z Insertion of Infusion Device into Right Basilic Vein, Percutaneous Approach (ICD-10-PCS; 2023-04-30)
DX: A41.9 Sepsis, unspecified organism (principal); I21.A1 Myocardial infarction type 2; I50.43 Acute on chronic combined systolic (congestive) and diastolic (congestive) heart failure; J96.01 Acute respiratory failure with hypoxia; N18.6 End stage renal disease; J69.0 Pneumonitis due to inhalation of food and vomit; G93.41 Metabolic encephalopathy; I46.9 Cardiac arrest, cause unspecified; I13.2 Hypertensive heart and chronic kidney disease with heart failure and with stage 5 chronic kidney disease, or end stage renal disease; E87.1 Hypo-osmolality and hyponatremia; I42.9 Cardiomyopathy, unspecified; G93.1 Anoxic brain damage, not elsewhere classified; Z20.822 Contact with and (suspected) exposure to COVID-19; Z66 Do not resuscitate; E11.22 Type 2 diabetes mellitus with diabetic chronic kidney disease; Z99.2 Dependence on renal dialysis; Z95.810 Presence of automatic (implantable) cardiac defibrillator; Z88.5 Allergy status to narcotic agent; N40.0 Benign prostatic hyperplasia without lower urinary tract symptoms; D63.1 Anemia in chronic kidney disease; E78.5 Hyperlipidemia, unspecified; E88.09 Other disorders of plasma-protein metabolism, not elsewhere classified; F20.9 Schizophrenia, unspecified; L89.156 Pressure-induced deep tissue damage of sacral region; Y95 Nosocomial condition; Z79.82 Long term (current) use of aspirin; Z79.84 Long term (current) use of oral hypoglycemic drugs; Z79.899 Other long term (current) drug therapy; I48.91 Unspecified atrial fibrillation; I25.2 Old myocardial infarction; Z82.49 Family history of ischemic heart disease and other diseases of the circulatory system; Z83.3 Family history of diabetes mellitus; R74.01 Elevation of levels of liver transaminase levels; R68.0 Hypothermia, not associated with low environmental temperature
CPT/HCPCS: 31720; 36410; 36415; 36569; 36600; 71045-TC; 80048-TC; 80053-TC; 80076-TC; 80202-TC; 82248-TC; 82272-TC; 82330; 82533; 82550-TC; 82553; 82607-TC; 82728-TC; 82803-TC; 82962-TC; 83540-TC; 83605-TC; 83735-TC; 84100-TC; 84478-TC; 84484-TC; 85025-TC; 85730-TC; 86706; 86850-TC; 87040-TC; 87081-TC; 87340; 90935-TC; 92526; 92611-TC; 92950-TC; 93307-TC; 94002-TC; 94003-TC; 94799-TC; 99082-TC; A4216; A4217; A4223; A6253; A6403; G0378; J0171; J0456; J0696; J0885; J1644; J1720; J1815; J2543; J2916; J3370; J3490; J7030; J7050; J7060; P9016; P9047